=== PATIENT | female | born 1980 | race Caucasian/White ===

== ENCOUNTER 2018-06-22 10:53 | Inpatient (IN) | payer BC ==
[~2018-06-22] VITALS: Ht 162.6 cm; Wt 100.0 kg
--- NOTE | ~2018-06-22 | OR ---
[facility] [address] [place] [address] [place], [place] [address] Draft DATE OF OPERATION: 06/25/2018 SURGEON: Gerardo Arroyo MD PREOPERATIVE DIAGNOSIS: Term , previous section x3. POSTOPERATIVE DIAGNOSIS: Term , previous section x3. PROCEDURE: Repeat low transverse segment section. Delivery of live female infant. Repair of inadvertent cystotomy. MANAGER MOBILITY: Dr. Elliott. Intraoperative consult Dr. Estefania Wade, urologist. ANESTHESIA: Spinal. ESTIMATED BLOOD LOSS: 500 mL. COMPLICATIONS: Inadvertent cystotomy in dome of bladder. DRAINS: Dailge to bladder. FINDINGS: Live female , Apgars 8 and 9. Weight 7 pounds 9 ounces. Normal uterus, normal tubes and ovaries. There was a small approximately 1 cm defect in the midline dome of the bladder that was approximately 5 cm below the lower uterine segment. There were no stitches, no sutures, and no dissection was done in this area, but the lower uterine segment was somewhat thin. Normal tubes and ovaries bilateral. DESCRIPTION OF THE PROCEDURE: The patient was brought to the operating room, placed in supine position. After PATIENT NAME: NIC CHANCE OPERATIVE REPORT DATE OF : 80 REPORT #: [id number] PHYSICIAN: GERARDO ARROYO MD PCP: NO PRIMARY CARE PHYSICIAN REPORT IS CONFIDENTIAL AND NOT TO BE RELEASED WITHOUT AUTHORIZATION [address] [place], [place] [address] Draft adequate spinal anesthesia was obtained, was prepped and draped in usual sterile fashion. Daigle catheter was placed in the bladder. A Pfannenstiel skin incision was made with scalpel through previous surgical scar. Subcutaneous tissue was dissected with Bovie and with a scalpel. The fascia was nicked with scalpel and extended in transverse fashion using curved scissors. The underlying abdominal musculature was bluntly and sharply from the fascia above and below the incision. The abdominal musculature was bluntly sharply along the midline. The peritoneum was grasped with hemostats, elevated, nicked with Metzenbaum scissors, extended in vertical fashion using Metzenbaum scissors. Casey self-retaining retractor was inserted into the incision and tightened in place. The lower uterine segment was identified and noted to be thin and there were no adhesions. The lower uterine segment was carefully nicked with scalpel and extended in transverse fashion using finger dissection. Bulging bag of clear fluid came from the incision. This was opened with pickups. was noted to be in vertex presentation. Infant head easily delivered from the incision. The rest of the was easily delivered from the incision. The mouth and nose suctioned with bulb syringe while the cord was doubly clamped and cut. was passed off table in good condition to awaiting nurse. The placenta was manually removed and uterine cavity explored with a lap pad to remove any retained membranes. An angle stitch of 0 Monocryl was placed in one end of the incision and a running locking stitch of 0 Monocryl starting at the other end and used to close the incision. A second running stitch of 0 Monocryl was used to imbricate the first layer. A small amount of bleeding in the midline of the incision. This was controlled with wpxark-uk-oktcb stitch of 0 Monocryl. Good hemostasis was noted. The entire pelvis was irrigated, suctioned, examined, and at this point, a small defect below the area of dissection was noted and appeared to be into the bladder, but was very small. The bladder was filled with sterile milk, which did come from the hole. The Casey retractor was removed and the defect identified again and defect closed using two running stitches of 0-chromic one in vertical fashion, one in transverse fashion. The bladder was again filled and small amount of milk came from the edge of the incision, so a third nlqrvp-qx-idjxc stitch of 2-0 chromic suture was placed and urology consult obtained to see if any further treatment was needed. The bladder was drained until Dr. Wade came and at this point, the bladder was filled with 350 mL of sterile milk and no leakage from the closed area of the bladder was seen. This was left in place for several minutes and no drainage was noted from the bladder, so the bladder was drained with recommendation to leave Daigle catheter in for two weeks. No antibiotics needed at this time because of sterile opening during surgery. At this point, sheet of ACell was placed over the lower uterine segment to help with healing. The anterior wall peritoneum was then closed using running stitch of 2-0 Vicryl suture. The abdominal wall incision was closed using interrupted stitches of 0 Vicryl suture. The abdominal wall incision was irrigated, suctioned and examined. There was a small amount of bleeding in the right upper area, which was controlled with two ebfdnv-az-anztq stitches of 0 Vicryl suture. When good hemostasis was obtained, the fascia was closed using two PATIENT NAME: NIC CHANCE OPERATIVE REPORT DATE OF : 80 REPORT #: [id number] PHYSICIAN: GERARDO ARROYO MD PCP: NO PRIMARY CARE PHYSICIAN REPORT IS CONFIDENTIAL AND NOT TO BE RELEASED WITHOUT AUTHORIZATION [facility] [address] [place] [address] Draft running stitches of 0 Vicryl suture meeting in the midline. Subcutaneous tissue was irrigated, suctioned, examined, and any bleeding spots cauterized with Bovie. The subcutaneous tissue was then closed using interrupted stitches of 3-0 Vicryl suture and the skin reapproximated using skin clips. The patient tolerated the procedure well, went to recovery room in good condition. Sponge, needle, and instrument counts were correct at the end of the procedure. MD ROSAURA Bynum/MODL /[id number] Copies: ~ PATIENT NAME: NIC CHANCE OPERATIVE REPORT DATE OF : [birth year] REPORT #: [id number] PHYSICIAN: GREARDO ARROYO MD PCP: NO PRIMARY CARE PHYSICIAN REPORT IS CONFIDENTIAL AND NOT TO BE RELEASED WITHOUT AUTHORIZATION
[~2018-06-22 10:53] MED LIST: NORCO 5-325 TA1 EACH PO
[2018-06-25] MEDS ORDERED: GLUCOPHAGE500 MG PO (06:25)
--- NOTE | 2018-06-25 09:43 | NUR ---
06/25/18 0943 Karen Hamm 0919- PT RETURNED TO ROOM 104. PT IS DROWSY. RESPONDS TO VERBAL STIMULI. FALLS BACK TO SLEEP INSTANTLY. PT'S AT THE BEDSIDE HOLDING BABY. CATHETER DRAINING CLEAR YELLOW URINE. IV INFUSING LR WITH PITOCIN WELL. IV WNL.
--- NOTE | 2018-06-30 09:47 | CONS ---
[facility] [address] [place], [place] [address] Signed DATE OF CONSULTATION: 06/25/2018 INTRAOPERATIVE CONSULTATION NOTE REASON FOR CONSULTATION: Iatrogenic bladder perforation during routine section. I was called to the operating room on the morning of June 25, 2018, at the request of Dr. Magdy Elliott, to evaluate an iatrogenic bladder perforation that both Dr. Elliott and Dr. Arroyo had already repaired. Their concern was that when milk was then instilled into the bladder, there appeared to be a leakage along the lines of their two-layer bladder closure. The patient, otherwise, underwent an uneventful section. Evaluation of the bladder intraoperatively reveals a rather thin serous layer over the bladder and there was approximately a repaired 2-cm cystotomy in the dome of the bladder. Upon initial evaluation, there appeared to be no other areas of injury to the bladder and the cystotomy appeared well closed using a 2-0 chromic. I asked for the patient's bladder to be filled again to approximately 350 mL. The patient's bladder was filled via her indwelling 16-Welsh Daigle catheter to 350 mL. During the filling phase and at the max fill, I did not appreciate any leakage from the patient's cystotomy repair. The sutures appeared intact and the tissue appeared to be well apposed. I then reassured both Dr. Elliott and Dr. Arroyo that the two-layered closure appeared to be adequate and that I did not appreciate any additional drainage from the repaired cystotomy site. I recommended to both Dr. Arroyo and Dr. Elliott that the patient is maintained on a Daigle catheter for around two weeks to allow adequate healing of the bladder wall. At that time, she will need to undergo a cystogram in the Imaging Department to confirm patency of the bladder wall prior to Daigle catheter removal. Upon removal of her catheter, she will require 5-7 days of oral antibiotics for empiric treatment of catheter-associated urinary tract infection. Both Dr. Elliott and Dr. Arroyo verbalized understanding of my recommendations. Once my intraoperative consultation was complete, they continued on with routine closure of patient. MD GIORGIO Barker/MODL /[id number] Electronically Signed By: QUINN PEDERSEN MD 06/30/18 0947 PATIENT NAME: NIC CHANCE KRYSTINA CONSULTATION DATE OF : 80 REPORT #: [id number] PHYSICIAN: QUINN PEDERSEN MD PCP: NO PRIMARY CARE PHYSICIAN REPORT IS CONFIDENTIAL AND NOT TO BE RELEASED WITHOUT AUTHORIZATION [facility] [address] [place] [address] Signed Copies: ~ Electronically Signed By: QUINN PEDERSEN MD 06/30/18 0947 PATIENT NAME: NIC CHANCE CONSULTATION DATE OF : 80 REPORT #: [id number] PHYSICIAN: QUINN PEDERSEN MD PCP: NO PRIMARY CARE PHYSICIAN REPORT IS CONFIDENTIAL AND NOT TO BE RELEASED WITHOUT AUTHORIZATION
== END 2018-06-28 18:50 | disposition home or self-care (01) | DRG 765 ==
LOC: FBC 06-25 05:40
PROVIDERS: ADMIT General Practice
PROC: 10D00Z1 Extraction of Products of Conception, Low, Open Approach (ICD-10-PCS; principal; 2018-06-25 06:45)
DX: O34.211 Maternal care for low transverse scar from previous cesarean delivery (principal); O71.5 Other obstetric injury to pelvic organs; N85.8 Other specified noninflammatory disorders of uterus; Z3A.39 39 weeks gestation of pregnancy; Z37.0 Single live birth; O69.81X0 Labor and delivery complicated by cord around neck, without compression, not applicable or unspecified; O24.420 Gestational diabetes mellitus in childbirth, diet controlled
CPT/HCPCS: 01961; 85027; C1763; J0690; J2250; J2274; J2300; J2405; J2550; J2590; J7120

== ENCOUNTER 2022-05-31 07:25 | Inpatient (IN) | payer OTHER ==
[~2022-05-31] VITALS: Ht 162.6 cm; Wt 109.8 kg
[~2022-05-31 07:25] MED LIST changes: +GLUCOPHAGE500 MG PO
--- NOTE | 2022-06-11 09:06 | NUR ---
06/11/22 0905 Irene Almanza 0898 PT ARRIVED IN PACU SLEEPY WITH NO C/O'S. DAD HOLDING BABY. 0850 DR AT BEDSIDE. 0900 MOM BREAST FEEDING BABY WITH HELP FROM [facility] RN.
--- NOTE | 2022-06-12 12:10 | OR ---
[facility] [address] [place], [place] [address] Signed DATE OF OPERATION: 06/11/2022 SURGEON: Gerardo Arroyo MD The patient of Dr. Arroyo. PREOPERATIVE DIAGNOSES: Term , previous section x4, sterilization and advanced maternal age. POSTOPERATIVE DIAGNOSIS: Term , previous section x4, sterilization and advanced maternal age. PROCEDURE: Repeat low transverse segment section, delivery of live male with bilateral tubal ligation. SHEET METAL OPERATOR: Dr. Elliott. ANESTHESIA: Spinal. ESTIMATED BLOOD LOSS: 500 mL. COMPLICATIONS: None. DRAINS: Daigle to bladder. FINDINGS: Live male infant in LOP vertex presentation. Apgars 8 and 9. Weight 7 pounds 9 ounces. Normal uterus. A large amount of amniotic fluid. There was 4 x 6 cm posterior right fundal subserosal fibroid and also approximately 5 cm omental adhesion to the left midline anterior abdominal wall. Tubes and ovaries were normal bilateral.\E\ DESCRIPTION OF PROCEDURE: The patient was brought to the operating room, placed in the supine position. After adequate spinal anesthesia was obtained, she was prepped and draped in usual sterile Electronically Signed By: GERARDO ARROYO MD 06/12/22 1210 PATIENT NAME: NIC CHANCE OPERATIVE REPORT DATE OF : 80 REPORT #: [id number] PHYSICIAN: GERARDO ARROYO MD PCP: NO PRIMARY CARE PHYSICIAN REPORT IS CONFIDENTIAL AND NOT TO BE RELEASED WITHOUT AUTHORIZATION [facility] [address] [place], [place] [address] Signed fashion. Daigle catheter placed in the bladder. A Pfannenstiel skin incision was made with a scalpel and subcutaneous tissue dissected with the scalpel and Bovie. The fascia was nicked with scalpel and extended in transverse fashion using curved scissors. The underlying abdominal musculature was bluntly sharply from the fascia above and below the incision. The abdominal musculature was sharply along the midline. The peritoneum bluntly entered and somewhat high and extended in a vertical fashion using curved scissors. Minimal stretching was done since the patient had previous inadvertent cystotomy with last . The Casey self-retaining retractor was inserted into the incision and tightened in place. A small skin incision was made in the midline above the bladder flap. This was slightly higher than normal, but due to previous cystotomy care was taken to stay away from the bladder. The incision was extended in a transverse fashion using finger dissection. Bulging bag of clear fluid came from the incision, this was opened with pickups with teeth and a large amount of clear fluid came from the incision. The was noted to be in the vertex LOP presentation. The head was easily delivered from the incision. The rest of the was easily delivered from the incision. The cord was doubly clamped and cut. The was passed off table in good condition to awaiting nurse. The placenta was manually removed. Uterine cavity explored with a lap pad to remove any retained membranes. An angle stitch of 0 Monocryl was placed at one end of the incision and a running locking stitch of 0 Monocryl was used to close the incision. A 2nd running stitch of 0 Monocryl was used to imbricate the incision. Good hemostasis was noted. The entire pelvis was irrigated, suctioned, and examined, and any superficial bleeding spots were cauterized with the Bovie. The Casey was then removed and the uterus gently brought out of the abdomen. The left fallopian tube was identified. The midportion of the tube was grasped with a Homer clamp and avascular portion of the mesosalpinx opened with the Bovie. Three ties of 2-0 chromic suture were placed through the opening and the tube ligated proximal and distal to the clamp with approximately 4 cm apart. The intervening portion of the tube was removed using Metzenbaum scissors and the two pedicles cauterized with Bovie. Good hemostasis was noted. The right side was done in similar fashion, grasping the fallopian tube with a Homer clamp, opening the avascular portion of mesosalpinx in midportion using a Bovie and using this opening ligating midportion of the tube with 2-0 chromic suture approximately 4 cm apart. The intervening tube was excised using Metzenbaum scissors and the two pedicles cauterized with the Bovie. Good hemostasis was noted. Both sides were re-examined, noted to have good hemostasis. The uterus was carefully placed back into the abdomen. The pelvis was irrigated, suctioned and examined noted to have good hemostasis. The omental adhesions was grasped with two Celina clamps against the anterior abdominal wall and cut between the two clamps. The two pedicles were then tied with 2-0 Chromic free ties. The anterior wall of the peritoneum was then closed using running stitch of 2-0 Vicryl suture. The abdominal musculature was reapproximated using interrupted stitches of 0 Vicryl suture. The Electronically Signed By: GERARDO ARROYO MD 06/12/22 1210 PATIENT NAME: NIC CHANCE OPERATIVE REPORT DATE OF : 80 REPORT #: [id number] PHYSICIAN: GERARDO ARROYO MD PCP: NO PRIMARY CARE PHYSICIAN REPORT IS CONFIDENTIAL AND NOT TO BE RELEASED WITHOUT AUTHORIZATION [facility] [address] [place], [place] [address] Signed abdominal wall was irrigated, suctioned, and examined, and any bleeding spots were cauterized with the Bovie. The fascia was then closed using two running stitch of 0 Vicryl suture meeting in the midline. Subcutaneous tissue was irrigated, suctioned, and examined, and any bleeding spots were cauterized with the Bovie. Subcutaneous tissue was then closed using interrupted stitches of 3-0 Vicryl suture. The skin was reapproximated using skin clips. The patient tolerated the procedure well, went to recovery room in good condition. The sponge, needle, and instrument counts were correct at the end of the procedure. Gerardo Arroyo MD MJB/MODL /[id number] Copies: ~ Electronically Signed By: GERARDO ARROYO MD 06/12/22 1210 PATIENT NAME: MERONNIC OPERATIVE REPORT DATE OF : 80 REPORT #: [id number] PHYSICIAN: GERARDO ARROYO MD PCP: NO PRIMARY CARE PHYSICIAN REPORT IS CONFIDENTIAL AND NOT TO BE RELEASED WITHOUT AUTHORIZATION
--- NOTE | 2022-06-12 12:13 | PR ---
[facility] [address] [facility] [place] [address] Signed PP Progress Notes Datetime Report Generated by CPN: 06/12/2022 12:13 SUBJECTIVE: [id number] Pain: Within Normal Limits Nausea/Vomiting: Denies Vital Signs: [id number] Vital Signs: Reviewed; Within Normal Limits Notable Details: PP Hgb/Hct = 7.9/23.9 Abdomen/Uterus: Normal Lochia: Normal Extremities: Normal Incision: Normal IMPRESSION/PLAN/PROCEDURES: [id number] Impression: Normal Progression Plan: Continue Present Management Procedures: None Progress Notes: Doing well, without complaint, tolerating food well, has voided and has showered without difficulty. Increase activitya s tolerated. Signing Physician: Rosalia Gaming MD Copies: ~ *Electronically Signed* 06/12/22 1213 ROSALIA GAMING MD PATIENT NAME: NIC CHANCE PROGRESS NOTE DATE OF : 80 PHYSICIAN: ROSALIA GAMING MD RPT #: [id number] REPORT IS CONFIDENTIAL AND NOT TO BE RELEASED WITHOUT AUTHORIZATION
--- NOTE | 2022-06-13 09:16 | PATH ---
[facility] [address] [place], [place] [address] Signed SPECIMEN(S): A FALLOPIAN TUBES, BILATERAL SPECIMEN SOURCE: A. FALLOPIAN TUBES, BILATERAL CLINICAL HISTORY: Previous section FINAL PATHOLOGIC DIAGNOSIS: Fallopian tubes, bilateral salpingectomy: - Segments of fallopian tubes within normal limits. TWK:rupesh:C2NR MICROSCOPIC EXAMINATION: Histologic sections of all submitted blocks are examined by light microscopy. These findings, together with the gross examination, support the pathologic diagnosis. GROSS DESCRIPTION: The specimen, labeled "CA, A," and designated on the requisition "portions of bilateral fallopian tubes," is received in formalin and consists of two undesignated segments of red-brown nonfimbriated fallopian tube (2.3 cm in length by 0.9 cm in diameter, and 2.4 cm in length by 0.9 cm in diameter). One fallopian tube segment is arbitrarily inked blue and both fallopian tubes are submitted en toto in cassette A1 and will be cut at embedding. AC (under the direct supervision of a pathologist) The Gross Description was prepared using a voice recognition system. The report was reviewed for accuracy; however, sound-alike word errors, addition and/or deletions may occur. If there is any question about this report, please contact Client Services. PERFORMING LABORATORY: The technical component was performed by [facility], [address] [place] [id number] (CLIA# [id number]). The professional interpretation was performed by [facility], [facility], [address] [place] [id number] (CLIA#: [id number]). Diagnostician: Cory Emmanuel MD Pathologist Electronically Signed 06/13/2022 PATIENT NAME: NIC CHANCE PATHOLOGY DATE OF : 80 REPORT #: [id number] PHYSICIAN: [facility] PCP: NO PRIMARY CARE PHYSICIAN REPORT IS CONFIDENTIAL AND NOT TO BE RELEASED WITHOUT AUTHORIZATION [address] [address] Signed Copies: ~ PATIENT NAME: NIC CHANCE PATHOLOGY DATE OF : 80 REPORT #: [id number] PHYSICIAN: [facility] PCP: NO PRIMARY CARE PHYSICIAN REPORT IS CONFIDENTIAL AND NOT TO BE RELEASED WITHOUT AUTHORIZATION
--- NOTE | 2022-06-13 14:07 | PR ---
[facility] [address] [facility] [place] [address] Signed PP Progress Notes Datetime Report Generated by CPN: 06/13/2022 14:07 SUBJECTIVE: [id number] Pain: Within Normal Limits Nausea/Vomiting: Denies Bowel Movement: Yes Vital Signs: [id number] Vital Signs: Reviewed; Within Normal Limits Notable Details: PP Hgb/Hct = 7.9/23.9 Abdomen/Uterus: Normal Lochia: Normal Extremities: Normal Incision: Normal IMPRESSION/PLAN/PROCEDURES: [id number] Impression: Normal Progression Plan: Discharge Procedures: None Progress Notes: Doing well, no complaints, wants to go home. Signing Physician: Rosalia Gaming MD Copies: ~ *Electronically Signed* 06/13/22 1407 ROSALIA GAMING MD PATIENT NAME: NIC CHANCE PROGRESS NOTE DATE OF : 80 PHYSICIAN: ROSALIA GAMING MD RPT #: [id number] REPORT IS CONFIDENTIAL AND NOT TO BE RELEASED WITHOUT AUTHORIZATION
== END 2022-06-13 16:15 | disposition home or self-care (01) | DRG 784 ==
LOC: FBC 06-11 05:09
PROVIDERS: ADMIT General Practice; ATTEND General Practice
PROC: 3E0T3BZ Introduction of Anesthetic Agent into Peripheral Nerves and Plexi, Percutaneous Approach (ICD-10-PCS; 2022-06-11)
PROC: 10D00Z1 Extraction of Products of Conception, Low, Open Approach (ICD-10-PCS; principal; 2022-06-11 07:30)
PROC: 0UB70ZZ Excision of Bilateral Fallopian Tubes, Open Approach (ICD-10-PCS; 2022-06-11 07:30)
DX: O34.211 Maternal care for low transverse scar from previous cesarean delivery (principal); D62 Acute posthemorrhagic anemia; O90.81 Anemia of the puerperium; Z30.2 Encounter for sterilization; O24.425 Gestational diabetes mellitus in childbirth, controlled by oral hypoglycemic drugs; Z3A.39 39 weeks gestation of pregnancy; Z37.0 Single live birth; Z88.8 Allergy status to other drugs, medicaments and biological substances; Z79.84 Long term (current) use of oral hypoglycemic drugs; Z79.899 Other long term (current) drug therapy; Z79.82 Long term (current) use of aspirin; Z20.822 Contact with and (suspected) exposure to COVID-19
CPT/HCPCS: 01961; 36415; 76942; 85027; 86850; 86900; 86901; 88305; A9270; J0690; J1885; J2001; J2274; J2300; J2370; J2405; J2590; J2765; J3010; J7121; U0003